=== PATIENT | female | born 1950 | race Caucasian/White ===

== ENCOUNTER 2023-10-03 15:07 | Emergency (ER) | payer OTHER ==
[~2023-10-03] VITALS: Ht 157.5 cm; Wt 66.0 kg
[2023-10-03 15:30] VITALS: O2SAT 98
[2023-10-03] MEDS: ACETAMINOPHEN 325MG TABLET PO ONE (18:00)
[2023-10-03 20:15] VITALS: BP 116/85; PULSE 73; RESP 15; TEMP 97.9
== END 2023-10-03 21:00 | disposition home or self-care (01) ==
LOC: ER 15:07
DX: M79.671 Pain in right foot (principal); M25.571 Pain in right ankle and joints of right foot; I10 Essential (primary) hypertension
CPT/HCPCS: 93971; 73590; 73610; 73630; 29515; 99284; Z7610

== ENCOUNTER 2024-05-26 13:35 | Emergency (ER) | payer OTHER ==
[~2024-05-26] VITALS: Ht 152.4 cm; Wt 58.9 kg
[~2024-05-26 13:35] MED LIST: MIDO5TAB4 PO; MUPI22OI2 NS; SULF1TAB48 MT
[2024-05-26 13:45] VITALS: O2SAT 100
[2024-05-26 16:53] VITALS: BP 114/56; PULSE 84; RESP 18; TEMP 36.8; O2SAT 100
== END 2024-05-26 17:17 | disposition home or self-care (01) ==
LOC: ER 13:35
DX: S81.811D Laceration without foreign body, right lower leg, subsequent encounter (principal); I10 Essential (primary) hypertension; Z48.02 Encounter for removal of sutures; X58.XXXD Exposure to other specified factors, subsequent encounter
CPT/HCPCS: 99281